=== PATIENT | male | born 1930 | race Caucasian/White ===

== ENCOUNTER 2017-11-10 13:22 | Emergency (ER) | payer MEDICARE ==
[~2017-11-10 13:22] MED LIST: ALBU8.5H8 IH; ATOR20TA65 PO; CARV6.25 PO; FEXO1TAB8 PO; FURO80TA3 PO; GUAI600T50 PO; METO5TAB7 PO; RIVA15TA PO; TIOT18CA3 IH; TRAV5DRO OP
[2017-11-10] MEDS ORDERED: MEROPENEM 1 GM VIAL ONE (13:44)
[2017-11-10] MEDS ORDERED: SODIUM CHLORIDE 0.9% 1000ML 1,000 ML IV ONE (13:44)
[2017-11-10] MEDS ORDERED: SODIUM CHLORIDE 0.9% 100 ML IV ONE (13:44)
[2017-11-10 14:39] LABS: BASOPHILS % (AUTO) 1.4 % (0.0-5.0); HEMATOCRIT 29.1 % (42-54); LYMPHOCYTES % (AUTO) 21.8 % (21.0-51.0); MEAN CORPUSCULAR HEMOGLOBIN 30.5 pg (27.0-33.0); MEAN CORPUSCULAR HGB CONC 34.2 g/dL (32.0-36.0); MEAN CORPUSCULAR VOLUME 89.3 fL (79-99); MONOCYTES % (AUTO) 7.1 % (3.0-13.0); NEUTROPHILS % (AUTO) 52.7 % (40.0-77.0); PLATELET COUNT (AUTO) 271 K/uL (130-400); RED BLOOD CELL COUNT(AUTO) 3.26 MIL/uL (4.50-6.20); RED CELL DISTRIBUTION WIDTH 16.3 % (11.0-15.5); WHITE BLOOD COUNT (AUTO) 9.2 K/uL (4.8-10.8)
[2017-11-10 14:50] LABS: CREATININE 1.8 mg/dL (0.5-1.5); INR 1.17 (0.85-1.15); PARTIAL THROMBOPLASTIN TIME 31.7 SEC (26.3-35.5); POTASSIUM 3.5 mmol/L (3.5-5.1); PROTHROMBIN TIME 12.2 SEC (9.6-11.6)
[2017-11-10 14:57] LABS: ALBUMIN 2.6 g/dL (3.5-5.0); BILIRUBIN,TOTAL 0.8 mg/dL (0.2-1.0); TOTAL PROTEIN, SERUM 6.6 g/dL (6.0-8.3)
== END 2017-11-10 16:36 | disposition home or self-care (01) ==
LOC: EDH 13:22
DX: S01.81XA Laceration without foreign body of other part of head, initial encounter (principal); S61.411A Laceration without foreign body of right hand, initial encounter; E78.5 Hyperlipidemia, unspecified; I48.91 Unspecified atrial fibrillation; I50.9 Heart failure, unspecified; J45.909 Unspecified asthma, uncomplicated; Z88.6 Allergy status to analgesic agent; Z87.891 Personal history of nicotine dependence; W18.39XA Other fall on same level, initial encounter; Y93.01 Activity, walking, marching and hiking; Y92.89 Other specified places as the place of occurrence of the external cause; Y99.8 Other external cause status
CPT/HCPCS: 12052; 36415; 70450; 71045; 72125; 72170; 80053; 85025; 85610; 85730; 93005; 99285; J7030; J2185